=== PATIENT | male | born 1990 | race American Indian/Alaskan Native ===

== ENCOUNTER 2016-05-26 02:17 | Emergency (ER) | payer SELFPAY ==
[2016-05-26 02:48] VITALS: BP 128/87
== END 2016-05-26 06:10 | disposition left against medical advice (07) ==
LOC: ED 02:17
DX: H57.10 Ocular pain, unspecified eye (principal); Z53.21 Procedure and treatment not carried out due to patient leaving prior to being seen by health care provider